=== PATIENT | female | born 1940 | race Caucasian/White ===

== ENCOUNTER 2016-05-19 11:20 | Outpatient (CLI) | payer MEDICARE | END 2016-05-19 11:21 | disposition home or self-care (01) | DX: I48.91 Unspecified atrial fibrillation (principal) ==

== ENCOUNTER 2016-06-16 12:58 | Outpatient (CLI) | payer MEDICARE | END 2016-06-16 12:59 | disposition home or self-care (01) | DX: I48.91 Unspecified atrial fibrillation (principal) ==

== ENCOUNTER 2016-07-15 10:25 | Outpatient (CLI) | payer MEDICARE | END 2016-07-15 10:26 | disposition home or self-care (01) | DX: I48.91 Unspecified atrial fibrillation (principal) ==

== ENCOUNTER 2016-08-14 14:50 | Outpatient (CLI) | payer MEDICARE | END 2016-08-14 14:51 | disposition home or self-care (01) | DX: I48.91 Unspecified atrial fibrillation (principal) ==

== ENCOUNTER 2016-08-28 10:45 | Outpatient (CLI) | payer MEDICARE | END 2016-08-28 10:46 | disposition home or self-care (01) | DX: I48.91 Unspecified atrial fibrillation (principal) ==

== ENCOUNTER 2016-09-18 11:08 | Outpatient (CLI) | payer MEDICARE | END 2016-09-18 11:09 | disposition home or self-care (01) | DX: I48.91 Unspecified atrial fibrillation (principal) ==

== ENCOUNTER 2016-10-15 08:20 | Outpatient (CLI) | payer MEDICARE | END 2016-10-15 08:21 | disposition home or self-care (01) | LOC: LAB.F 08:20 | PROVIDERS: ATTEND Emergency Medicine | DX: I48.91 Unspecified atrial fibrillation (principal) | CPT/HCPCS: 85610 ==

== ENCOUNTER 2016-11-13 07:49 | Outpatient (CLI) | payer MEDICARE | END 2016-11-13 07:50 | disposition home or self-care (01) | LOC: LAB.F 07:49 | PROVIDERS: ATTEND Emergency Medicine | DX: I48.91 Unspecified atrial fibrillation (principal) | CPT/HCPCS: 85610 ==

== ENCOUNTER 2016-12-10 08:16 | Outpatient (CLI) | payer MEDICARE | END 2016-12-10 08:17 | disposition home or self-care (01) | LOC: LAB.F 08:16 | PROVIDERS: ATTEND Emergency Medicine | DX: I48.91 Unspecified atrial fibrillation (principal) | CPT/HCPCS: 85610 ==

== ENCOUNTER 2017-01-07 08:16 | Outpatient (CLI) | payer MEDICARE | END 2017-01-07 08:17 | disposition home or self-care (01) | LOC: LAB.F 08:16 | PROVIDERS: ATTEND Emergency Medicine | DX: I48.91 Unspecified atrial fibrillation (principal) | CPT/HCPCS: 85610 ==

== ENCOUNTER 2017-02-04 08:28 | Outpatient (CLI) | payer MEDICARE | END 2017-02-04 08:29 | disposition home or self-care (01) | LOC: LAB.F 08:28 | PROVIDERS: ATTEND Emergency Medicine | DX: I48.91 Unspecified atrial fibrillation (principal) | CPT/HCPCS: 85610 ==

== ENCOUNTER 2017-03-04 08:12 | Outpatient (CLI) | payer MEDICARE | END 2017-03-04 08:13 | disposition home or self-care (01) | LOC: LAB.F 08:12 | PROVIDERS: ATTEND Emergency Medicine | DX: I48.91 Unspecified atrial fibrillation (principal) | CPT/HCPCS: 85610 ==

== ENCOUNTER 2017-03-18 10:53 | Outpatient (CLI) | payer MEDICARE | END 2017-03-18 10:54 | disposition home or self-care (01) | LOC: LAB.F 10:53 | PROVIDERS: ATTEND Emergency Medicine | DX: I48.91 Unspecified atrial fibrillation (principal) | CPT/HCPCS: 85610 ==

== ENCOUNTER 2017-04-01 09:29 | Outpatient (CLI) | payer MEDICARE | END 2017-04-01 09:30 | disposition home or self-care (01) | LOC: LAB.F 09:29 | PROVIDERS: ATTEND Emergency Medicine | DX: I48.91 Unspecified atrial fibrillation (principal) | CPT/HCPCS: 85610 ==

== ENCOUNTER 2017-04-22 09:32 | Outpatient (CLI) | payer MEDICARE | END 2017-04-22 09:33 | disposition home or self-care (01) | LOC: LAB.F 09:32 | PROVIDERS: ATTEND Emergency Medicine | DX: I48.91 Unspecified atrial fibrillation (principal) | CPT/HCPCS: 85610 ==

== ENCOUNTER 2017-05-14 11:14 | Outpatient (CLI) | payer MEDICARE | END 2017-05-14 11:15 | disposition home or self-care (01) | LOC: LAB.F 11:14 | PROVIDERS: ATTEND Emergency Medicine | DX: I48.91 Unspecified atrial fibrillation (principal) | CPT/HCPCS: 85610 ==

== ENCOUNTER 2017-05-19 07:39 | Outpatient (CLI) | payer MEDICARE | END 2017-05-19 07:40 | disposition home or self-care (01) | LOC: LAB.F 07:39 | PROVIDERS: ATTEND Emergency Medicine | DX: I48.91 Unspecified atrial fibrillation (principal) | CPT/HCPCS: 85610 ==

== ENCOUNTER 2017-06-01 11:05 | Outpatient (CLI) | payer MEDICARE | END 2017-06-01 11:06 | disposition home or self-care (01) | LOC: LAB.F 11:05 | PROVIDERS: ATTEND Emergency Medicine | DX: I48.91 Unspecified atrial fibrillation (principal) | CPT/HCPCS: 85610 ==

== ENCOUNTER 2017-06-08 11:09 | Outpatient (CLI) | payer MEDICARE | END 2017-06-08 11:10 | disposition home or self-care (01) | LOC: LAB.F 11:09 | PROVIDERS: ATTEND Emergency Medicine | DX: I48.91 Unspecified atrial fibrillation (principal) | CPT/HCPCS: 85610 ==

== ENCOUNTER 2017-06-15 10:48 | Outpatient (CLI) | payer MEDICARE | END 2017-06-15 10:49 | disposition home or self-care (01) | LOC: LAB.F 10:48 | PROVIDERS: ATTEND Emergency Medicine | DX: I48.91 Unspecified atrial fibrillation (principal) | CPT/HCPCS: 85610 ==

== ENCOUNTER 2017-06-30 08:47 | Outpatient (CLI) | payer MEDICARE | END 2017-06-30 08:48 | disposition home or self-care (01) | LOC: LAB.F 08:47 | PROVIDERS: ATTEND Emergency Medicine | DX: I48.91 Unspecified atrial fibrillation (principal) | CPT/HCPCS: 85610 ==

== ENCOUNTER 2017-07-14 09:58 | Outpatient (CLI) | payer MEDICARE | END 2017-07-14 09:59 | disposition home or self-care (01) | LOC: LAB.F 09:58 | PROVIDERS: ATTEND Emergency Medicine | DX: I48.91 Unspecified atrial fibrillation (principal) | CPT/HCPCS: 85610 ==

== ENCOUNTER 2017-08-04 08:02 | Outpatient (CLI) | payer MEDICARE | END 2017-08-04 08:03 | disposition home or self-care (01) | LOC: LAB.F 08:02 | PROVIDERS: ATTEND Emergency Medicine | DX: I48.91 Unspecified atrial fibrillation (principal) | CPT/HCPCS: 85610 ==

== ENCOUNTER 2017-08-13 14:03 | Outpatient (CLI) | payer MEDICARE | END 2017-08-13 14:04 | disposition home or self-care (01) | LOC: LAB.F 14:03 | PROVIDERS: ATTEND Emergency Medicine | DX: I48.91 Unspecified atrial fibrillation (principal) | CPT/HCPCS: 85610 ==

== ENCOUNTER 2017-08-20 07:39 | Outpatient (CLI) | payer MEDICARE | END 2017-08-20 07:40 | disposition home or self-care (01) | LOC: LAB.F 07:39 | PROVIDERS: ATTEND Emergency Medicine | DX: I48.91 Unspecified atrial fibrillation (principal) | CPT/HCPCS: 85610 ==

== ENCOUNTER 2017-08-27 10:57 | Outpatient (CLI) | payer MEDICARE | END 2017-08-27 10:58 | disposition home or self-care (01) | LOC: LAB.F 10:57 | PROVIDERS: ATTEND Emergency Medicine | DX: I48.91 Unspecified atrial fibrillation (principal) | CPT/HCPCS: 85610 ==

== ENCOUNTER 2017-09-17 08:51 | Outpatient (CLI) | payer MEDICARE | END 2017-09-17 08:52 | disposition home or self-care (01) | LOC: LAB.F 08:51 | PROVIDERS: ATTEND Emergency Medicine | DX: I48.91 Unspecified atrial fibrillation (principal) | CPT/HCPCS: 85610 ==

== ENCOUNTER 2017-10-01 08:00 | Outpatient (CLI) | payer MEDICARE | END 2017-10-01 08:01 | disposition home or self-care (01) | LOC: LAB.F 08:00 | PROVIDERS: ATTEND Emergency Medicine | DX: I48.91 Unspecified atrial fibrillation (principal) | CPT/HCPCS: 85610 ==

== ENCOUNTER 2017-10-22 08:05 | Outpatient (CLI) | payer MEDICARE | END 2017-10-22 08:06 | disposition home or self-care (01) | LOC: LAB.F 08:05 | PROVIDERS: ATTEND Emergency Medicine | DX: I48.91 Unspecified atrial fibrillation (principal) | CPT/HCPCS: 85610 ==

== ENCOUNTER 2017-11-22 08:19 | Outpatient (CLI) | payer MEDICARE | END 2017-11-22 08:20 | disposition home or self-care (01) | LOC: LAB.F 08:19 | PROVIDERS: ATTEND Emergency Medicine | DX: I48.91 Unspecified atrial fibrillation (principal) | CPT/HCPCS: 85610 ==

== ENCOUNTER 2018-01-03 09:17 | Outpatient (CLI) | payer MEDICARE | END 2018-01-03 09:18 | disposition home or self-care (01) | LOC: LAB.F 09:17 | PROVIDERS: ATTEND Emergency Medicine | DX: I48.91 Unspecified atrial fibrillation (principal) | CPT/HCPCS: 85610 ==

== ENCOUNTER 2018-02-28 09:28 | Outpatient (CLI) | payer MEDICARE | END 2018-02-28 09:29 | disposition home or self-care (01) | LOC: LAB.F 09:28 | PROVIDERS: ATTEND Emergency Medicine | DX: I48.91 Unspecified atrial fibrillation (principal) | CPT/HCPCS: 85610 ==

== ENCOUNTER 2018-04-18 09:48 | Outpatient (CLI) | payer MEDICARE | END 2018-04-18 09:49 | disposition home or self-care (01) | LOC: LAB.F 09:48 | PROVIDERS: ATTEND Emergency Medicine | DX: I48.91 Unspecified atrial fibrillation (principal) | CPT/HCPCS: 85610 ==

== ENCOUNTER 2018-04-26 13:36 | Outpatient (CLI) | payer MEDICARE | END 2018-04-26 13:37 | disposition home or self-care (01) | LOC: LAB.F 13:36 | PROVIDERS: ATTEND Emergency Medicine | DX: I48.91 Unspecified atrial fibrillation (principal) | CPT/HCPCS: 85610 ==

== ENCOUNTER 2018-05-05 10:19 | Outpatient (CLI) | payer MEDICARE | END 2018-05-05 10:20 | disposition home or self-care (01) | LOC: LAB.F 10:19 | PROVIDERS: ATTEND Emergency Medicine | DX: I48.91 Unspecified atrial fibrillation (principal) | CPT/HCPCS: 85610 ==

== ENCOUNTER 2018-05-19 09:51 | Outpatient (CLI) | payer MEDICARE | END 2018-05-19 09:52 | disposition home or self-care (01) | LOC: LAB.F 09:51 | PROVIDERS: ATTEND Emergency Medicine | DX: I48.91 Unspecified atrial fibrillation (principal) | CPT/HCPCS: 85610 ==

== ENCOUNTER 2018-06-07 13:14 | Outpatient (CLI) | payer MEDICARE | END 2018-06-07 13:15 | disposition home or self-care (01) | LOC: LAB.F 13:14 | PROVIDERS: ATTEND Emergency Medicine | DX: I48.91 Unspecified atrial fibrillation (principal) | CPT/HCPCS: 85610 ==

== ENCOUNTER 2018-07-06 10:33 | Outpatient (CLI) | payer MEDICARE | END 2018-07-06 10:34 | disposition home or self-care (01) | LOC: LAB.F 10:33 | PROVIDERS: ATTEND Emergency Medicine | DX: I48.91 Unspecified atrial fibrillation (principal) | CPT/HCPCS: 85610 ==

== ENCOUNTER 2018-08-17 10:50 | Outpatient (CLI) | payer MEDICARE | END 2018-08-17 10:51 | disposition home or self-care (01) | LOC: LAB.F 10:50 | PROVIDERS: ATTEND Emergency Medicine | DX: I48.91 Unspecified atrial fibrillation (principal) | CPT/HCPCS: 85610 ==

== ENCOUNTER 2018-09-14 09:16 | Outpatient (CLI) | payer MEDICARE | END 2018-09-14 09:17 | disposition home or self-care (01) | LOC: LAB.F 09:16 | PROVIDERS: ATTEND Emergency Medicine | DX: I48.91 Unspecified atrial fibrillation (principal) | CPT/HCPCS: 85610 ==

== ENCOUNTER 2018-10-21 07:45 | Outpatient (CLI) | payer MEDICARE | END 2018-10-21 07:46 | disposition home or self-care (01) | LOC: LAB.F 07:45 | PROVIDERS: ATTEND Emergency Medicine | DX: I48.91 Unspecified atrial fibrillation (principal) | CPT/HCPCS: 85610 ==

== ENCOUNTER 2018-11-23 12:01 | Outpatient (CLI) | payer MEDICARE | END 2018-11-23 12:02 | disposition home or self-care (01) | LOC: LAB.S 12:01 | PROVIDERS: ATTEND Emergency Medicine | DX: I48.91 Unspecified atrial fibrillation (principal) | CPT/HCPCS: 85610 ==

== ENCOUNTER 2018-12-16 | Outpatient (CLI) | payer MEDICARE | END 2018-12-16 10:11 | disposition home or self-care (01) | DX: I48.91 Unspecified atrial fibrillation (principal) ==

== ENCOUNTER 2018-12-30 10:35 | Outpatient (CLI) | payer MEDICARE | END 2018-12-30 10:36 | disposition home or self-care (01) | LOC: LAB.S 10:35 | PROVIDERS: ATTEND Emergency Medicine | DX: I48.91 Unspecified atrial fibrillation (principal) | CPT/HCPCS: 85610 ==

== ENCOUNTER 2019-01-30 09:23 | Outpatient (CLI) | payer MEDICARE | END 2019-01-30 09:24 | disposition home or self-care (01) | LOC: LAB.S 09:23 | PROVIDERS: ATTEND Emergency Medicine | DX: I48.91 Unspecified atrial fibrillation (principal) | CPT/HCPCS: 85610 ==

== ENCOUNTER 2019-03-01 11:45 | Outpatient (CLI) | payer MEDICARE | END 2019-03-01 11:46 | disposition home or self-care (01) | LOC: LAB.S 11:45 | PROVIDERS: ATTEND Emergency Medicine | DX: I48.91 Unspecified atrial fibrillation (principal) | CPT/HCPCS: 85610 ==

== ENCOUNTER 2019-05-02 13:49 | Outpatient (CLI) | payer MEDICARE | END 2019-05-02 13:50 | disposition home or self-care (01) | LOC: LAB.S 13:49 | PROVIDERS: ATTEND Emergency Medicine | DX: I48.91 Unspecified atrial fibrillation (principal) | CPT/HCPCS: 85610 ==

== ENCOUNTER 2019-05-19 10:55 | Outpatient (CLI) | payer MEDICARE | END 2019-05-19 10:56 | disposition home or self-care (01) | LOC: LAB.S 10:55 | PROVIDERS: ATTEND Emergency Medicine | DX: I48.91 Unspecified atrial fibrillation (principal) | CPT/HCPCS: 85610 ==

== ENCOUNTER 2019-06-09 14:00 | Outpatient (CLI) | payer MEDICARE | END 2019-06-09 14:01 | disposition home or self-care (01) | LOC: LAB.S 14:00 | PROVIDERS: ATTEND Emergency Medicine | DX: I48.91 Unspecified atrial fibrillation (principal) | CPT/HCPCS: 85610 ==

== ENCOUNTER 2019-07-04 13:38 | Outpatient (CLI) | payer MEDICARE | END 2019-07-04 13:39 | disposition home or self-care (01) | LOC: LAB.S 13:38 | PROVIDERS: ATTEND Emergency Medicine | DX: I48.91 Unspecified atrial fibrillation (principal) | CPT/HCPCS: 85610 ==

== ENCOUNTER 2019-07-11 10:28 | Outpatient (CLI) | payer MEDICARE | END 2019-07-11 10:29 | disposition home or self-care (01) | LOC: LAB.S 10:28 | PROVIDERS: ATTEND Emergency Medicine | DX: I48.91 Unspecified atrial fibrillation (principal) | CPT/HCPCS: 85610 ==

== ENCOUNTER 2019-07-31 09:24 | Outpatient (CLI) | payer MEDICARE | END 2019-07-31 09:25 | disposition home or self-care (01) | LOC: LAB.S 09:24 | PROVIDERS: ATTEND Emergency Medicine | DX: I48.91 Unspecified atrial fibrillation (principal) | CPT/HCPCS: 85610 ==

== ENCOUNTER 2019-08-07 08:59 | Outpatient (CLI) | payer MEDICARE | END 2019-08-07 09:00 | disposition home or self-care (01) | LOC: LAB.S 08:59 | PROVIDERS: ATTEND Emergency Medicine | DX: I48.91 Unspecified atrial fibrillation (principal) | CPT/HCPCS: 85610 ==

== ENCOUNTER 2019-11-21 09:37 | Outpatient (CLI) | payer MEDICARE | END 2019-11-21 09:38 | disposition home or self-care (01) | LOC: LAB.S 09:37 | PROVIDERS: ATTEND Emergency Medicine | DX: I48.91 Unspecified atrial fibrillation (principal) | CPT/HCPCS: 85610 ==

== ENCOUNTER 2019-12-25 10:46 | Outpatient (CLI) | payer MEDICARE | END 2019-12-25 10:47 | disposition home or self-care (01) | LOC: LAB.S 10:46 | PROVIDERS: ATTEND Emergency Medicine | DX: I48.91 Unspecified atrial fibrillation (principal) | CPT/HCPCS: 85610 ==

== ENCOUNTER 2020-01-08 11:57 | Outpatient (CLI) | payer MEDICARE | END 2020-01-08 11:58 | disposition home or self-care (01) | LOC: LAB.S 11:57 | PROVIDERS: ATTEND Emergency Medicine | DX: I48.91 Unspecified atrial fibrillation (principal) | CPT/HCPCS: 85610 ==

== ENCOUNTER 2020-02-05 13:15 | Outpatient (CLI) | payer MEDICARE | END 2020-02-05 13:16 | disposition home or self-care (01) | LOC: LAB.S 13:15 | PROVIDERS: ATTEND Emergency Medicine | DX: I48.91 Unspecified atrial fibrillation (principal) | CPT/HCPCS: 85610 ==

== ENCOUNTER 2020-02-23 12:45 | Outpatient (CLI) | payer MEDICARE | END 2020-02-23 12:46 | disposition home or self-care (01) | LOC: LAB.S 12:45 | PROVIDERS: ATTEND Emergency Medicine | DX: I48.91 Unspecified atrial fibrillation (principal) | CPT/HCPCS: 85610 ==

== ENCOUNTER 2020-03-20 12:00 | Outpatient (CLI) | payer MEDICARE | END 2020-03-20 12:01 | disposition home or self-care (01) | LOC: LAB.S 12:00 | PROVIDERS: ATTEND Emergency Medicine | DX: I48.91 Unspecified atrial fibrillation (principal) | CPT/HCPCS: 85610 ==

== ENCOUNTER 2020-04-29 12:27 | Outpatient (CLI) | payer MEDICARE | END 2020-04-29 12:28 | disposition home or self-care (01) | LOC: LAB.S 12:27 | PROVIDERS: ATTEND Emergency Medicine | DX: I48.91 Unspecified atrial fibrillation (principal) | CPT/HCPCS: 85610 ==

== ENCOUNTER 2020-05-15 09:07 | Outpatient (CLI) | payer MEDICARE | END 2020-05-15 09:08 | disposition home or self-care (01) | LOC: LAB.S 09:07 | PROVIDERS: ATTEND Emergency Medicine | DX: I48.91 Unspecified atrial fibrillation (principal) | CPT/HCPCS: 85610 ==

== ENCOUNTER 2020-06-03 11:50 | Outpatient (CLI) | payer MEDICARE | END 2020-06-03 11:51 | disposition home or self-care (01) | LOC: LAB.S 11:50 | PROVIDERS: ATTEND Emergency Medicine | DX: I48.91 Unspecified atrial fibrillation (principal) | CPT/HCPCS: 85610 ==

== ENCOUNTER 2020-06-25 11:26 | Outpatient (CLI) | payer MEDICARE | END 2020-06-25 11:27 | disposition home or self-care (01) | LOC: LAB.S 11:26 | PROVIDERS: ATTEND Emergency Medicine | DX: I48.91 Unspecified atrial fibrillation (principal) | CPT/HCPCS: 85610 ==

== ENCOUNTER 2020-07-26 12:15 | Outpatient (CLI) | payer MEDICARE | END 2020-07-26 12:16 | disposition home or self-care (01) | LOC: LAB.S 12:15 | PROVIDERS: ATTEND Emergency Medicine | DX: I48.91 Unspecified atrial fibrillation (principal) | CPT/HCPCS: 85610 ==

== ENCOUNTER 2020-08-23 09:03 | Outpatient (CLI) | payer MEDICARE | END 2020-08-23 09:04 | disposition home or self-care (01) | LOC: LAB.S 09:03 | PROVIDERS: ATTEND Emergency Medicine | DX: I48.91 Unspecified atrial fibrillation (principal) | CPT/HCPCS: 85610 ==

== ENCOUNTER 2020-09-25 11:54 | Outpatient (CLI) | payer MEDICARE | END 2020-09-25 11:55 | disposition home or self-care (01) | LOC: LAB.S 11:54 | PROVIDERS: ATTEND Internal Medicine Clinical Cardiac Electrophysiology | DX: I48.91 Unspecified atrial fibrillation (principal) | CPT/HCPCS: 36416; 85610 ==

== ENCOUNTER 2020-10-17 10:20 | Outpatient (CLI) | payer MEDICARE | END 2020-10-17 10:21 | disposition home or self-care (01) | LOC: LAB.S 10:20 | PROVIDERS: ATTEND Internal Medicine Clinical Cardiac Electrophysiology | DX: I48.91 Unspecified atrial fibrillation (principal) | CPT/HCPCS: 36416; 85610 ==

== ENCOUNTER 2020-11-22 16:31 | Outpatient (CLI) | payer MEDICARE | END 2020-11-22 16:32 | disposition home or self-care (01) | LOC: LAB.S 16:31 | PROVIDERS: ATTEND Internal Medicine Clinical Cardiac Electrophysiology | DX: I48.91 Unspecified atrial fibrillation (principal) | CPT/HCPCS: 36416; 85610 ==

== ENCOUNTER 2020-12-27 11:28 | Outpatient (CLI) | payer MEDICARE | END 2020-12-27 11:29 | disposition home or self-care (01) | LOC: LAB.S 11:28 | PROVIDERS: ATTEND Internal Medicine Clinical Cardiac Electrophysiology | DX: I48.91 Unspecified atrial fibrillation (principal) | CPT/HCPCS: 36416; 85610 ==

== ENCOUNTER 2021-01-29 14:51 | Outpatient (CLI) | payer MEDICARE | END 2021-01-29 14:52 | disposition home or self-care (01) | LOC: LAB.S 14:51 | PROVIDERS: ATTEND Internal Medicine Clinical Cardiac Electrophysiology | DX: I48.91 Unspecified atrial fibrillation (principal) | CPT/HCPCS: 36416; 85610 ==

== ENCOUNTER 2021-02-11 13:24 | Outpatient (CLI) | payer MEDICARE | END 2021-02-11 13:25 | disposition home or self-care (01) | LOC: LAB.S 13:24 | PROVIDERS: ATTEND Internal Medicine Clinical Cardiac Electrophysiology | DX: I48.91 Unspecified atrial fibrillation (principal) | CPT/HCPCS: 36416; 85610 ==

== ENCOUNTER 2021-03-04 10:39 | Outpatient (CLI) | payer MEDICARE | END 2021-03-04 10:40 | disposition home or self-care (01) | LOC: LAB.S 10:39 | PROVIDERS: ATTEND Internal Medicine Clinical Cardiac Electrophysiology | DX: I48.91 Unspecified atrial fibrillation (principal) | CPT/HCPCS: 36416; 85610 ==

== ENCOUNTER 2021-04-02 14:34 | Outpatient (CLI) | payer MEDICARE | END 2021-04-02 14:35 | disposition home or self-care (01) | LOC: LAB.S 14:34 | PROVIDERS: ATTEND Internal Medicine Clinical Cardiac Electrophysiology | DX: I48.91 Unspecified atrial fibrillation (principal) | CPT/HCPCS: 36416; 85610 ==

== ENCOUNTER 2021-04-09 10:33 | Outpatient (CLI) | payer MEDICARE | END 2021-04-09 10:34 | disposition home or self-care (01) | LOC: LAB.S 10:33 | PROVIDERS: ATTEND Internal Medicine Clinical Cardiac Electrophysiology | DX: I48.91 Unspecified atrial fibrillation (principal) | CPT/HCPCS: 36416; 85610 ==

== ENCOUNTER 2021-04-28 09:40 | Outpatient (CLI) | payer MEDICARE | END 2021-04-28 09:41 | disposition home or self-care (01) | LOC: LAB.S 09:40 | PROVIDERS: ATTEND Internal Medicine Clinical Cardiac Electrophysiology | DX: I48.91 Unspecified atrial fibrillation (principal) | CPT/HCPCS: 36416; 85610 ==

== ENCOUNTER 2021-05-22 11:38 | Outpatient (CLI) | payer MEDICARE | END 2021-05-22 11:39 | disposition home or self-care (01) | LOC: LAB.S 11:38 | PROVIDERS: ATTEND Internal Medicine Clinical Cardiac Electrophysiology | DX: I48.91 Unspecified atrial fibrillation (principal) | CPT/HCPCS: 36416; 85610 ==

== ENCOUNTER 2021-06-04 10:34 | Outpatient (CLI) | payer MEDICARE | END 2021-06-04 10:35 | disposition home or self-care (01) | LOC: LAB.S 10:34 | PROVIDERS: ATTEND Internal Medicine Clinical Cardiac Electrophysiology | DX: I48.91 Unspecified atrial fibrillation (principal) | CPT/HCPCS: 36416; 85610 ==

== ENCOUNTER 2021-07-02 11:17 | Outpatient (CLI) | payer MEDICARE | END 2021-07-02 11:18 | disposition home or self-care (01) | LOC: LAB.S 11:17 | PROVIDERS: ATTEND Internal Medicine Clinical Cardiac Electrophysiology | DX: I48.91 Unspecified atrial fibrillation (principal) | CPT/HCPCS: 36416; 85610 ==

== ENCOUNTER 2021-07-31 10:47 | Outpatient (CLI) | payer MEDICARE | END 2021-07-31 10:48 | disposition home or self-care (01) | LOC: LAB.S 10:47 | PROVIDERS: ATTEND Internal Medicine Clinical Cardiac Electrophysiology | DX: I48.91 Unspecified atrial fibrillation (principal) | CPT/HCPCS: 36416; 85610 ==

== ENCOUNTER 2021-08-29 10:17 | Outpatient (CLI) | payer MEDICARE | END 2021-08-29 10:18 | disposition home or self-care (01) | LOC: LAB.S 10:17 | PROVIDERS: ATTEND Internal Medicine Clinical Cardiac Electrophysiology | DX: I48.91 Unspecified atrial fibrillation (principal) | CPT/HCPCS: 36416; 85610 ==

== ENCOUNTER 2021-09-23 12:00 | Outpatient (CLI) | payer MEDICARE | END 2021-09-23 12:01 | disposition home or self-care (01) | LOC: LAB.S 12:00 | PROVIDERS: ATTEND Internal Medicine Clinical Cardiac Electrophysiology | DX: I48.91 Unspecified atrial fibrillation (principal) | CPT/HCPCS: 36416; 85610 ==

== ENCOUNTER 2021-11-12 12:53 | Outpatient (CLI) | payer MEDICARE | END 2021-11-12 12:54 | disposition home or self-care (01) | LOC: LAB.S 12:53 | PROVIDERS: ATTEND Internal Medicine Clinical Cardiac Electrophysiology | DX: I48.91 Unspecified atrial fibrillation (principal) | CPT/HCPCS: 36416; 85610 ==

== ENCOUNTER 2021-11-24 09:40 | Outpatient (CLI) | payer MEDICARE | END 2021-11-24 09:41 | disposition home or self-care (01) | LOC: LAB.S 09:40 | PROVIDERS: ATTEND Internal Medicine Clinical Cardiac Electrophysiology | DX: I48.91 Unspecified atrial fibrillation (principal) | CPT/HCPCS: 36416; 85610 ==

== ENCOUNTER 2021-12-16 10:31 | Outpatient (CLI) | payer MEDICARE | END 2021-12-16 10:32 | disposition home or self-care (01) | LOC: LAB.S 10:31 | PROVIDERS: ATTEND Internal Medicine Clinical Cardiac Electrophysiology | DX: I48.91 Unspecified atrial fibrillation (principal) | CPT/HCPCS: 85610 ==

== ENCOUNTER 2022-01-15 10:24 | Outpatient (CLI) | payer MEDICARE | END 2022-01-15 10:25 | disposition home or self-care (01) | LOC: LAB.S 10:24 | PROVIDERS: ATTEND Internal Medicine Clinical Cardiac Electrophysiology | DX: I48.91 Unspecified atrial fibrillation (principal) | CPT/HCPCS: 36416; 85610 ==

== ENCOUNTER 2022-02-13 13:40 | Outpatient (CLI) | payer MEDICARE | END 2022-02-13 13:41 | disposition home or self-care (01) | LOC: LAB.S 13:40 | PROVIDERS: ATTEND Internal Medicine Clinical Cardiac Electrophysiology | DX: I48.91 Unspecified atrial fibrillation (principal) | CPT/HCPCS: 36416; 85610 ==

== ENCOUNTER 2022-04-22 13:29 | Outpatient (CLI) | payer MEDICARE | END 2022-04-22 13:30 | disposition home or self-care (01) | LOC: LAB.S 13:29 | PROVIDERS: ATTEND Internal Medicine Clinical Cardiac Electrophysiology | DX: I48.91 Unspecified atrial fibrillation (principal) | CPT/HCPCS: 36416; 85610 ==

== ENCOUNTER 2022-05-13 13:25 | Outpatient (CLI) | payer MEDICARE | END 2022-05-13 13:26 | disposition home or self-care (01) | LOC: LAB.S 13:25 | PROVIDERS: ATTEND Internal Medicine Clinical Cardiac Electrophysiology | DX: I48.91 Unspecified atrial fibrillation (principal) | CPT/HCPCS: 36416; 85610 ==

== ENCOUNTER 2022-05-27 12:23 | Outpatient (CLI) | payer MEDICARE | END 2022-05-27 12:24 | disposition home or self-care (01) | LOC: LAB.S 12:23 | PROVIDERS: ATTEND Internal Medicine Clinical Cardiac Electrophysiology | DX: I48.91 Unspecified atrial fibrillation (principal) | CPT/HCPCS: 36416; 85610 ==

== ENCOUNTER 2022-06-25 09:06 | Outpatient (CLI) | payer MEDICARE | END 2022-06-25 09:07 | disposition home or self-care (01) | LOC: LAB.S 09:06 | PROVIDERS: ATTEND Internal Medicine Clinical Cardiac Electrophysiology | DX: I48.91 Unspecified atrial fibrillation (principal) | CPT/HCPCS: 36416; 85610 ==

== ENCOUNTER 2022-07-21 08:00 | Outpatient (CLI) | payer MEDICARE | END 2022-07-21 23:59 | disposition home or self-care (01) | LOC: LAB.S 08:00 | PROVIDERS: ATTEND Internal Medicine Clinical Cardiac Electrophysiology | DX: I48.91 Unspecified atrial fibrillation (principal) | CPT/HCPCS: 36416; 85610 ==

== ENCOUNTER 2022-08-05 13:34 | Outpatient (CLI) | payer MEDICARE | END 2022-08-05 13:35 | disposition home or self-care (01) | LOC: LAB.S 13:34 | PROVIDERS: ATTEND Internal Medicine Clinical Cardiac Electrophysiology | DX: I48.91 Unspecified atrial fibrillation (principal) | CPT/HCPCS: 36416; 85610 ==

== ENCOUNTER 2022-08-20 10:29 | Outpatient (CLI) | payer MEDICARE | END 2022-08-20 10:30 | disposition home or self-care (01) | LOC: LAB.S 10:29 | PROVIDERS: ATTEND Internal Medicine Clinical Cardiac Electrophysiology | DX: I48.91 Unspecified atrial fibrillation (principal) | CPT/HCPCS: 36416; 85610 ==

== ENCOUNTER 2022-09-10 09:32 | Outpatient (CLI) | payer MEDICARE | END 2022-09-10 09:33 | disposition home or self-care (01) | LOC: LAB.S 09:32 | PROVIDERS: ATTEND Internal Medicine Clinical Cardiac Electrophysiology | DX: I48.91 Unspecified atrial fibrillation (principal) | CPT/HCPCS: 36416; 85610 ==

== ENCOUNTER 2022-10-14 09:46 | Outpatient (CLI) | payer MEDICARE | END 2022-10-14 09:47 | disposition home or self-care (01) | LOC: LAB.S 09:46 | PROVIDERS: ATTEND Internal Medicine Clinical Cardiac Electrophysiology | DX: I48.91 Unspecified atrial fibrillation (principal) | CPT/HCPCS: 36416; 85610 ==

== ENCOUNTER 2022-10-28 09:12 | Outpatient (CLI) | payer MEDICARE | END 2022-10-28 09:13 | disposition home or self-care (01) | LOC: LAB.S 09:12 | PROVIDERS: ATTEND Internal Medicine Clinical Cardiac Electrophysiology | DX: I48.91 Unspecified atrial fibrillation (principal) | CPT/HCPCS: 36416; 85610 ==

== ENCOUNTER 2022-11-19 09:41 | Outpatient (CLI) | payer MEDICARE | END 2022-11-19 09:42 | disposition home or self-care (01) | LOC: LAB.S 09:41 | PROVIDERS: ATTEND Internal Medicine Clinical Cardiac Electrophysiology | DX: I48.91 Unspecified atrial fibrillation (principal) | CPT/HCPCS: 36416; 85610 ==

== ENCOUNTER 2022-12-21 13:51 | Outpatient (CLI) | payer MEDICARE | END 2022-12-21 13:52 | disposition home or self-care (01) | LOC: LAB.S 13:51 | PROVIDERS: ATTEND Internal Medicine Clinical Cardiac Electrophysiology | DX: I48.91 Unspecified atrial fibrillation (principal) | CPT/HCPCS: 36416; 85610 ==

== ENCOUNTER 2023-01-04 11:40 | Outpatient (CLI) | payer MEDICARE | END 2023-01-04 11:41 | disposition home or self-care (01) | LOC: LAB.S 11:40 | PROVIDERS: ATTEND Internal Medicine Clinical Cardiac Electrophysiology | DX: I48.91 Unspecified atrial fibrillation (principal) | CPT/HCPCS: 36416; 85610 ==

== ENCOUNTER 2023-01-25 09:24 | Outpatient (CLI) | payer MEDICARE | END 2023-01-25 09:25 | disposition home or self-care (01) | LOC: LAB.S 09:24 | PROVIDERS: ATTEND Internal Medicine Clinical Cardiac Electrophysiology | DX: I48.91 Unspecified atrial fibrillation (principal) | CPT/HCPCS: 36416; 85610 ==

== ENCOUNTER 2023-02-25 10:16 | Outpatient (CLI) | payer MEDICARE | END 2023-02-25 10:17 | disposition home or self-care (01) | LOC: LAB.S 10:16 | PROVIDERS: ATTEND Internal Medicine Clinical Cardiac Electrophysiology | DX: I48.91 Unspecified atrial fibrillation (principal) | CPT/HCPCS: 36416; 85610 ==

== ENCOUNTER 2023-04-07 12:06 | Outpatient (CLI) | payer MEDICARE | END 2023-04-07 12:07 | disposition home or self-care (01) | LOC: LAB.S 12:06 | PROVIDERS: ATTEND Internal Medicine Clinical Cardiac Electrophysiology | DX: I48.91 Unspecified atrial fibrillation (principal) | CPT/HCPCS: 36416; 85610 ==

== ENCOUNTER 2023-04-29 11:23 | Outpatient (CLI) | payer MEDICARE | END 2023-04-29 11:24 | disposition home or self-care (01) | LOC: LAB.S 11:23 | PROVIDERS: ATTEND Internal Medicine Clinical Cardiac Electrophysiology | DX: I48.91 Unspecified atrial fibrillation (principal) | CPT/HCPCS: 36416; 85610 ==

== ENCOUNTER 2023-06-08 14:00 | Outpatient (CLI) | payer MEDICARE | END 2023-06-08 14:01 | disposition home or self-care (01) | LOC: LAB.S 14:00 | PROVIDERS: ATTEND Internal Medicine Clinical Cardiac Electrophysiology | DX: I48.91 Unspecified atrial fibrillation (principal) | CPT/HCPCS: 36415; 36416; 85610 ==

== ENCOUNTER 2023-08-04 11:09 | Outpatient (CLI) | payer MEDICARE | END 2023-08-04 11:10 | disposition home or self-care (01) | LOC: LAB.S 11:09 | PROVIDERS: ATTEND Internal Medicine Clinical Cardiac Electrophysiology | DX: I48.91 Unspecified atrial fibrillation (principal) | CPT/HCPCS: 36416; 85610 ==

== ENCOUNTER 2023-08-11 11:23 | Outpatient (CLI) | payer MEDICARE | END 2023-08-11 11:24 | disposition home or self-care (01) | LOC: LAB.S 11:23 | PROVIDERS: ATTEND Internal Medicine Clinical Cardiac Electrophysiology | DX: I48.91 Unspecified atrial fibrillation (principal) | CPT/HCPCS: 36416; 85610 ==

== ENCOUNTER 2023-08-18 10:19 | Outpatient (CLI) | payer MEDICARE | END 2023-08-18 10:20 | disposition home or self-care (01) | LOC: LAB.S 10:19 | PROVIDERS: ATTEND Internal Medicine Clinical Cardiac Electrophysiology | DX: I48.91 Unspecified atrial fibrillation (principal) | CPT/HCPCS: 36416; 85610 ==

== ENCOUNTER 2023-09-20 10:53 | Outpatient (CLI) | payer MEDICARE | END 2023-09-20 10:54 | disposition home or self-care (01) | LOC: LAB.S 10:53 | PROVIDERS: ATTEND Internal Medicine Clinical Cardiac Electrophysiology | DX: I48.91 Unspecified atrial fibrillation (principal) | CPT/HCPCS: 36416; 85610 ==

== ENCOUNTER 2023-10-18 10:58 | Outpatient (CLI) | payer MEDICARE | END 2023-10-18 10:59 | disposition home or self-care (01) | LOC: LAB.S 10:58 | PROVIDERS: ATTEND Internal Medicine Clinical Cardiac Electrophysiology | DX: I48.91 Unspecified atrial fibrillation (principal) | CPT/HCPCS: 36416; 85610 ==

== ENCOUNTER 2024-01-24 09:58 | Outpatient (CLI) | payer MEDICARE | END 2024-01-24 09:59 | disposition home or self-care (01) | LOC: LAB.S 09:58 | PROVIDERS: ATTEND Internal Medicine Clinical Cardiac Electrophysiology | DX: I48.91 Unspecified atrial fibrillation (principal) | CPT/HCPCS: 36416; 85610 ==